=== PATIENT | female | born 1995 | race Caucasian/White ===

== ENCOUNTER → 2023-11-03 07:26 | Outpatient (REF) | payer BC, SELFPAY | LOC: MRI 3T 07:26 | PROVIDERS: ATTENDING PHYSICIAN Obstetrics & Gynecology; FAMILY PHYSICIAN Family Medicine | DX: R93.89 Abnormal findings on diagnostic imaging of other specified body structures (principal) | CPT/HCPCS: 72197; A9575 ==

== ENCOUNTER 2025-05-22 19:30 | Emergency (ER) | payer BC, SELFPAY ==
[2025-05-22 19:38] VITALS: BP 127/83
[2025-05-22 20:07] LABS: Hematocrit 40.0 % (37.0-47.0); Hemoglobin 13.2 g/dL (12.0-16.0); Mean Corp Hgb Conc. 33.0 g/dL (33.0-37.0); Mean Corpuscular Volume 88.3 fL (81.0-99.0); Nucleated Red Blood Cells % 0 %; Red Cell Dist. Width 14.3 % (11.5-14.5)
[2025-05-22 20:17] LABS: HCG, Serum Qualitative Screen Negative
[2025-05-22 20:23] LABS: ALT (SGPT) 21 U/L (0-35); AST (SGOT) 23 U/L (14-36); Albumin 5.0 g/dl (3.5-5.0); Alkaline Phosphatase 45 U/L (38-126); Blood Urea Nitrogen 15 mg/dl (7-17); Calcium 9.6 mg/dl (8.4-10.2); Carbon Dioxide 26 mmol/L (22-30); Chloride 103 mmol/L (98-107); Glucose 83 mg/dl (70-99); Potassium 4.5 mmol/L (3.5-5.1); Sodium 134 mmol/L (135-145); Total Protein 7.7 g/dl (6.3-8.2); eGFR > 60.00
[2025-05-22 20:24] LABS: Platelet Count 608 10^3/uL (130-400)
[2025-05-22 22:27] VITALS: BP 132/78
[2025-05-22 22:29] VITALS: BMI 27.4
[2025-05-22 23:00] VITALS: BP 117/70
[2025-05-23] VITALS: BP 108/59
[2025-05-23 01:00] VITALS: BP 102/70
[2025-05-23 02:00] VITALS: BP 114/70
--- NOTE | 2025-05-23 02:57 | DOWNTIME ---
There was a [employer] Downtime on 05/23/2025 from 0100 to 05/23/2025 at 0255. Downtime documentation of patient's care, including medication administrations, has been reconciled in the electronic record per guidelines. Refer to the
patient's paper chart under the miscellaneous tab to see printed paper medication records and downtime forms.
--- NOTE | 2025-05-23 03:12 | ED.GENMED ---
History of Present Illness
General
Chief Complaint: Dizziness
Source: patient and significant other
Exam Limitations: none
Time Seen by Provider: 05/23/25 00:15
Nursing documentation reviewed up to this point in time: agreed with
History of Present Illness
History of Present Illness:
Note:
CHIEF COMPLAINT(S)
Uncontrollable shaking, nausea, and lower back pain.
HISTORY OF PRESENT ILLNESS
The patient is a 29-year-old female with a history of taking interferon injections weekly. She presented with symptoms that began at approximately 6:30 PM. The patient reported the sudden onset of nausea followed by uncontrollable shaking,
characterized by teeth chattering, despite putting on additional layers and blankets for warmth. She stated, 'Nothing would stop it.' The shaking gradually subsided upon arrival at the medical facility.
The patient has been recovering from a cold over the past three weeks but states she is now 99% recovered. She also noted the onset of her menstrual period today, which coincided with an increase in her typical period-associated lower back pain. The
patient voiced concern about a potential kidney infection, as she felt significant pain 'like a band across the lower back.'
A notable part of the patients recent history includes taking her interferon injection at 5:30 PM, one hour before the symptoms began. The patient indicated she has never experienced such symptoms despite three years of treatment with interferon.
The sudden and severe nature of the symptoms was described as 'scary' by the patient.
PHYSICAL EXAM
General: Alert, no acute distress.
Skin: Warm, dry.
Head: Normocephalic, atraumatic.
Neck: Supple, trachea midline.
Eye, Ears, Nose, Mouth and Throat: Oral mucosa moist.
Cardiovascular: Normal peripheral perfusion, No edema.
Respiratory: Respirations are non-labored.
Gastrointestinal: Abdomen nondistended.
Back: Normal range of motion, Normal alignment.
Musculoskeletal: Normal ROM, normal strength.
Neurological: Alert and oriented to person, place, time, and situation, No focal neurological deficit observed.
Psychiatric: Cooperative, appropriate mood & affect.
PLAN
A urine sample will be obtained to rule out a urinary tract infection or kidney infection. The patient will be monitored for the resolution of her symptoms and, if stable, may be discharged home. Follow-up will be based on the results of the urine
analysis and any subsequent findings.
DIFFERENTIAL DIAGNOSIS
The Differential Diagnosis includes, in no particular order and is not limited to:
1. Urinary tract infection
2. Kidney infection (Pyelonephritis)
3. Interferon side effect
4. Anxiety or panic attack
5. Viral syndrome
6. Hypoglycemia
7. Dehydration
8. Musculoskeletal strain
9. Menstrual-related symptoms
10. Fibromyalgia
CARE-UPDATE
05/23/25 - 02:35
Patient remains asymptomatic with no evidence of infection upon reexamination. Lung assessment confirms clear airway. Abdominal exam remains benign. Patient is stable and cleared for discharge.
Disposition:
SUMMARY OF ENCOUNTER
The patient, a 29-year-old female with a history of interferon injections, presented with sudden onset nausea, uncontrollable shaking, and lower back pain. Symptoms began shortly after her last interferon injection. She was concerned about a
potential kidney infection due to severe lower back pain. A urine sample was planned to rule out infection. Upon reevaluation, she was found to be asymptomatic with no signs of infection.
DISPOSITION
Discharge
PLAN
The patient will be monitored for symptom resolution and, if stable, can be discharged home. Follow-up will be based on the results of the urine analysis.
PATIENT EDUCATION AND COUNSELING
The patient was informed about the lack of evidence for infection at this time. She was advised to monitor her symptoms and follow up with her primary care provider. Return precautions if symptoms worsen or new symptoms develop were given.
FOLLOW-UP INSTRUCTIONS
The patient was instructed to follow up with her primary care physician.
MEDICAL DECISION MAKING
-Complexity of Data Reviewed: Chronic conditions affecting care include interferon injections and recent upper respiratory infection. Differential diagnoses considered included urinary tract infection, kidney infection, side effect from interferon,
anxiety or panic attack, viral syndrome, hypoglycemia, dehydration, musculoskeletal strain, menstrual-related symptoms, and fibromyalgia.
-Data:
Category 1: A urine sample was planned to rule out infection.
Category 2: None applicable.
Category 3: Discussion of management with patients primary care provider for follow-up care.
-Risk: Consideration of Admission/Observation: Escalation of care including admission/observation was considered given the complexity and risk of the patients presenting complaint. However, ultimately the patient is safe for outpatient management
with close follow up. Reasoning: Work-up reassuring, does not reveal any acute life/organ threatening process, patients symptoms well controlled upon reevaluation, reexamination is reassuring, vitals are stable, patient agreeable with discharge,
reliable for follow-up.
DIAGNOSIS
1. Adverse effect of interferon, initial encounter (T50.995A)
2. Nausea (R11.0)
3. Low back pain (M54.5)
Past History
Past History
ED Past Medical History: Other (Thrombocytosis)
ED Past Surgical History: Other (Oral surgery)
Social History
Tobacco: Non-smoker
Phy Exam
Physical Exam
Physical Exam:
.
Course
Orders/Labs/Results
Orders:
Orders
05/22/25 19:43
Electrocardiogram (*1) Urgent
Reason for Study: Vertigo / Dizzy
EKG- Treatment ONCE
Test Result ONCE
05/22/25 19:50
Complete Blood Count/With Diff Urgent
Comprehensive Metabolic Panel Urgent
HCG, Serum Qualitative Screen Urgent
05/23/25 01:24
Acetaminophen [Tylenol] 1,000 mg .ROUTE .STK-MED ONE
05/23/25 01:31
Urinalysis Reflex To Culture Urgent
Abnormal Lab Results
05/22/25
19:50
Plt Count 608 H 10^3/uL
(130-400)
Abs Immat Gran (auto) 0.2 H 10^3/uL
(0-0.05)
Absolute Neuts (auto) 7.4 H 10^3/uL
(1.4-6.5)
Absolute Lymphs (auto) 0.8 L 10^3/uL
(1.2-3.4)
Immature Gran % 2.1 H %
(0-0.5)
Neutrophils % 85.5 H %
(42.2-75.2)
Lymphocytes % 9.2 L %
(20.5-51.1)
Sodium 134 L mmol/L
(135-145)
05/22/25 19:50
05/22/25 19:50
Vital Signs
Initial and Last Documented VS:
Initial Vital Signs
Temp Pulse Resp BP Pulse Ox
98.3 F 129 20 127/83 98
05/22/25 19:38 05/22/25 19:38 05/22/25 19:38 05/22/25 19:38 05/22/25 19:38
Last Documented Vital Signs
Temp Pulse Resp BP Pulse Ox
98.3 F 88 17 114/70 95
05/22/25 19:38 05/23/25 02:30 05/23/25 02:30 05/23/25 02:00 05/23/25 02:30
*Pulse Oximetry
SaO2: 95
Oxygen Mode of Delivery: Room air
Patient hypoxic: no
*Critical Care Note
Total Time (30-74mins, 75-104mins- exclusive of procedures): Not Applicable
ED Attending Note
-
Portions of this chart may have been created with voice recognition software.� Occasional wrong word or��sound alike� substitutions may have occurred due to the inherent limitations of voice recognition software.
Discharge Plan
Departure
Patient Disposition: Home (Routine Discharge)
Patient with high blood pressure during this ER visit?: No
Condition: Good
Discharge Problem:
Chills, Low back pain
Prescriptions:
No Action
norethindrone (contraceptive) 0.35 mg Tablet
0.35 mg PO DAILY
Pegasys ProClick 180 mcg/0.5 mL Pen Injector
180 mcg SC WEEKLY
Rx Instructions:
WEDNESDAY
aspirin 81 mg Capsule
81 mg PO DAILY
ondansetron 8 mg tablet,disintegrating
8 mg PO TID PRN (Reason: nausea and vomiting) Qty: 20 0RF
oxycodone 5 mg tablet
5 mg PO Q4H PRN (Reason: Pain) Qty: 14 0RF
Referrals:
NONE,* [Family Provider, Internal Medicine]
Interventions
Interventions:
*Risk Screen - Suicide Last Done: 05/22/25 19:38
*General Assessment Last Done: 05/22/25 19:38
*Neglect/Abuse Screening Last Done: 05/22/25 22:29
*ED- Fall Risk Assessment Last Done: 05/22/25 22:29
*ED COVID-19 Vaccine History Last Done: 05/22/25 22:29
*ED Influenza Vaccine History Last Done: 05/22/25 22:29
*Nursing Disposition Last Done: 05/23/25 02:45
ED- Neurological Assessment Last Done: 05/22/25 22:29
ED- Cardiac Assessment Last Done: 05/22/25 22:29
Discharge Date and Time
Discharge Date/Time: 05/23/25 02:45
Print Language: UKRAINIAN
[2025-05-23 03:17] LABS: Urine Character Clear (Clear); Urine Red Blood Cell 0-2 /HPF (0-2); Urine White Cell 0-2 /HPF (0-5)
== END 2025-05-23 02:45 | disposition home or self-care (01) ==
LOC: EMR 19:30
PROVIDERS: EMERGENCY PHYSICIAN Emergency Medicine
DX: R68.83 Chills (without fever) (principal); M54.50 Low back pain, unspecified; Z79.620 Long term (current) use of immunosuppressive biologic; Z79.82 Long term (current) use of aspirin
CPT/HCPCS: 99284; 80053; 81003; 81015; 84703; 85025; 93005